=== PATIENT | female | born 1990 | race Caucasian/White ===

== ENCOUNTER 2020-08-01 09:31 | Emergency (ER) | payer MEDICAID ==
[2020-08-01 10:12] LABS: BASOPHILS % (AUTO) 0.5 %; EOSINOPHILS % (AUTO) 0.5 %; LYMPHOCYTES # (AUTO) 1.4 10^3/uL (1.5-3.5); MEAN CORPUSCULAR HEMOGLOBIN 30.9 pg (27.0-31.0); MEAN CORPUSCULAR HGB CONC 34.8 g/dL (32.0-36.0); MEAN CORPUSCULAR VOLUME 88.8 fL (81.0-99.0); MEAN PLATELET VOLUME 11.9 fL (7.9-10.8); MONOCYTES # (AUTO) 0.4 10^3/uL (0.0-1.0); MONOCYTES % (AUTO) 5.3 %; NEUTROPHILS # (AUTO) 6.2 10^3/uL (1.5-6.6); NEUTROPHILS % (AUTO) 76.3 %; PLT - PLATELET COUNT 167 10^3/uL (130-450); RED BLOOD COUNT 4.21 10^6/uL (4.20-5.40); RED CELL DISTRIBUTION WIDTH 14.2 % (12.0-15.0); WHITE BLOOD COUNT 8.1 x10^3/uL (4.8-10.8)
[2020-08-01 10:27] LABS: ALBUMIN 3.6 g/dL (3.2-5.5); ALBUMIN/GLOBULIN RATIO 1.2 (1.0-2.2); ALKALINE PHOSPHATASE 49 IU/L (42-121); ALT ALANINE AMINOTRANSFERASE 19 IU/L (10-60); AST ASPARTATE AMINOTRANSFERASE 25 IU/L (10-42); BILIRUBIN,TOTAL 0.5 mg/dL (0.2-1.0); BUN - BLOOD UREA NITROGEN < 5 mg/dL (6-20); CARBON DIOXIDE - CO2 21 mmol/L (21-32); CHLORIDE 104 mmol/L (101-111); CREATININE 0.7 mg/dL (0.4-1.0); GLUCOSE 100 mg/dL (70-100); LIPASE 27 U/L (22-51); TOTAL PROTEIN 6.7 g/dL (6.7-8.2)
[2020-08-01 10:43] LABS: BILIRUBIN,URINE NEGATIVE (NEGATIVE); GLUCOSE, URINE (UA) NEGATIVE (NEGATIVE); KETONES,URINE (UA) NEGATIVE (NEGATIVE); LEUKOCYTE ESTERASE, URINE NEGATIVE (NEGATIVE); NITRITE,URINE NEGATIVE (NEGATIVE); OCCULT BLOOD,URINE NEGATIVE (NEGATIVE); PH,URINE 6.5 PH (5.0-7.5); PROTEIN,URINE NEGATIVE (NEGATIVE); UROBILINOGEN,URINE 0.2 (NORMAL) E.U./dL (NORMAL)
[2020-08-01 10:46] LABS: HCG UR QUAL POSITIVE
[2020-08-01 10:50] LABS: CLARITY,URINE CLEAR (CLEAR)
[2020-08-01] MEDS ORDERED: ONDANSETRON 4 MG/2 ML VIAL IVP STA (11:12)
[2020-08-01] MEDS ORDERED: SODIUM CHLORIDE 0.9% 1,000 ML IV STA (11:12)
--- NOTE | 2020-08-01 11:14 | ED Physician Documentation ---
PD HPI FEMALE - Stated complaint Stated Complaint: N/V - Chief complaint Chief Complaint: Abd Pain - History obtained from History obtained from: Patient - History of Present Illness Timing - onset: How many days ago (3) Timing - duration: Days (3) Timing - details: Gradual onset, Still present Associated symptoms: Pelvic pain, Other (vomiting) Contributing factors: (18 wks by dates) OB-SOAKER MEAT History: G (4), P (2), Termination(s) (1) Similar symptoms before: Diagnosis (hyperemesis) Recently seen: Not recently seen - Additional information Additional information: 29-year-old female who is at approximately 18 weeks by dates is a 4 para 2 AB 1 and she has developed some pelvic cramping as well as nausea and vomiting and she has history of hyperemesis. She has vomited throughout her she feels dehydrated today and she is come in for evaluation. She has not had care with this as she is recently moved here from [place]. She has not had ultrasound with this . Review of Systems Constitutional: denies: Fever Eyes: denies: Decreased vision Ears: denies: Ear pain Nose: denies: Congestion Throat: denies: Sore throat Cardiac: denies: Chest pain / pressure, Palpitations Respiratory: denies: Dyspnea, Cough GI: reports: Abdominal Pain, Nausea, Vomiting, Diarrhea : denies: Dysuria, Frequency Skin: denies: Rash Musculoskeletal: denies: Neck pain, Back pain, Extremity pain Neurologic: denies: Generalized weakness, Focal weakness, Numbness PD PAST MEDICAL HISTORY - Past Medical History Cardiovascular: None Respiratory: None Neuro: Migraines Endocrine/Autoimmune: None GI: GERD : Kidney stones HEENT: None Psych: Anxiety Musculoskeletal: None Derm: None - Past Surgical History Past Surgical History: Yes /SOAKER MEAT: section - Present Medications Home Medications: Ambulatory Orders Medication Instructions Recorded Confirmed Ondansetron Odt [Zofran] 4 mg TL Q6H PRN #10 tab 08/01/20 - Allergies Allergies/Adverse Reactions: Allergies Allergy/AdvReac Type Severity Reaction Status Date / Time No Known Drug Allergies Allergy Verified 08/01/20 09:37 - Social History Does the pt smoke?: No Smoking Status: Never smoker Does the pt drink ETOH?: No Does the pt have substance abuse?: No - Immunizations Immunizations are current?: Yes PD ED PE NORMAL - Vitals Vital signs reviewed: Yes (tachy and hypertensive ) - General General: Alert and oriented X 3, No acute distress, Well developed/nourished - HEENT HEENT: Atraumatic, PERRL, EOMI - Neck Neck: Supple, no meningeal sign, No bony TTP - Cardiac Cardiac: No murmur, Other (tachy to 100) - Respiratory Respiratory: No respiratory distress, Clear bilaterally - Abdomen Abdomen: Normal bowel sounds, Soft, Non distended, No organomegaly, Other (mild suprapubic tenderness without garding) - Back Back: No CVA TTP, No spinal TTP - Derm Derm: Normal color, Warm and dry, No rash - Extremities Extremities: No deformity, No edema - Neuro Neuro: Alert and oriented X 3, 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, No motor deficit, No sensory deficit, Normal speech Eye Opening: Spontaneous Motor: Obeys Commands Verbal: Oriented GCS Score: 15 - Psych Psych: Normal mood, Normal affect Results - Vitals Vitals: Vital Signs - 24 hr 08/01/20 08/01/20 09:37 11:38 Temperature 36.3 C L Heart Rate 103 H 64 Respiratory 18 18 Rate Blood Pressure 141/92 H 110/62 O2 Saturation 100 99 Oxygen O2 Source Room air - Labs Labs: Laboratory Tests 08/01/20 08/01/20 08/01/20 10:00 10:00 10:13 WBC 8.1 RBC 4.21 Hgb 13.0 Hct 37.4 MCV 88.8 MCH 30.9 MCHC 34.8 RDW 14.2 Plt Count 167 MPV 11.9 H Neut # (Auto) 6.2 Lymph # (Auto) 1.4 L Bucks # (Auto) 0.4 Eos # (Auto) 0.0 Baso # (Auto) 0.0 Absolute Nucleated RBC 0.00 Nucleated RBC % 0.0 Sodium 137 Potassium 3.7 Chloride 104 Carbon Dioxide 21 Anion Gap 12.0 BUN < 5 L Creatinine 0.7 Estimated GFR (MDRD) 100 Glucose 100 Calcium 9.0 Total Bilirubin 0.5 AST 25 ALT 19 Alkaline Phosphatase 49 Total Protein 6.7 Albumin 3.6 Globulin 3.1 Albumin/Globulin Ratio 1.2 Lipase 27 Urine Color YELLOW Urine Clarity CLEAR Urine pH 6.5 Ur Specific Henderson 1.010 Urine Protein NEGATIVE Urine Glucose (UA) NEGATIVE Urine Ketones NEGATIVE Urine Occult Blood NEGATIVE Urine Nitrite NEGATIVE Urine Bilirubin NEGATIVE Urine Urobilinogen 0.2 (NORMAL) Ur Leukocyte Esterase NEGATIVE Ur Microscopic Review NOT INDICATED Urine Culture Comments NOT INDICATED Urine HCG, Qual POSITIVE Procedures - Bedside sono Bedside sono by EMP: With use of bedside ultrasound the pelvis is imaged there is a single viable viable fetus measuring 16 weeks 6 days by biparietal diameter with a heart rate of 144 bpm. - IVC sono (time) 1100 Bedside IVC sono: IVC measures (cm) (1.07), IVC collapsed c insp (cm) (complete), Dehydration (est 1+ liter deficit) Departure - Departure Disposition: 01 Home, Self Care Clinical Impression: Dehydration, Hyperemesis gravidarum Condition: Stable Instructions: ED Dehydration, ED Preg Morning Sickness Follow-Up: [facility] [Provider Group] Prescriptions: Ondansetron Odt [Zofran] 4 mg TL Q6H PRN #10 tab PRN Reason: Nausea / Vomiting
[2020-08-01 11:39] VITALS: BP 110/62
== END 2020-08-01 12:28 | disposition home or self-care (01) ==
LOC: ED 09:31
DX: O99.282 Endocrine, nutritional and metabolic diseases complicating pregnancy, second trimester (principal); O21.1 Hyperemesis gravidarum with metabolic disturbance; Z3A.16 16 weeks gestation of pregnancy
CPT/HCPCS: 36415; 80053; 81001; 81003; 81025; 83690; 85025; 87086; 96374; 99284

== ENCOUNTER 2020-08-04 08:00 | Outpatient (CLI) | payer MEDICAID ==
[2020-08-04 14:23] LABS: BILIRUBIN,URINE NEGATIVE (NEGATIVE); GLUCOSE, URINE (UA) NEGATIVE (NEGATIVE); KETONES,URINE (UA) NEGATIVE (NEGATIVE); LEUKOCYTE ESTERASE, URINE NEGATIVE (NEGATIVE); NITRITE,URINE NEGATIVE (NEGATIVE); OCCULT BLOOD,URINE NEGATIVE (NEGATIVE); PH,URINE 7.5 PH (5.0-7.5); PROTEIN,URINE NEGATIVE (NEGATIVE); UROBILINOGEN,URINE 0.2 (NORMAL) E.U./dL (NORMAL)
[2020-08-04 14:27] LABS: CLARITY,URINE CLEAR (CLEAR)
[2020-08-04 14:40] LABS: BACTERIA,URINE None Seen /HPF (None Seen); RBC,URINE 0-5 /HPF (0-5); SQUAMOUS EPITHELIAL CELL,UR RARE Squamous (<= Few)
== END 2020-08-04 23:59 | disposition home or self-care (01) ==
LOC: LAB.R 08:00
PROVIDERS: ATTEND Obstetrics & Gynecology
DX: Z36.89 Encounter for other specified antenatal screening (principal)
CPT/HCPCS: 81001; 87086

== ENCOUNTER 2020-08-12 10:29 | Outpatient (CLI) | payer MEDICAID ==
[2020-08-12 11:12] LABS: BASOPHILS % (AUTO) 0.3 %; EOSINOPHILS % (AUTO) 0.4 %; HGB - HEMOGLOBIN 13.4 g/dL (12.0-16.0); LYMPHOCYTES # (AUTO) 2.1 10^3/uL (1.5-3.5); LYMPHOCYTES % (AUTO) 19.7 %; MEAN CORPUSCULAR HEMOGLOBIN 31.1 pg (27.0-31.0); MEAN CORPUSCULAR HGB CONC 34.9 g/dL (32.0-36.0); MEAN CORPUSCULAR VOLUME 89.1 fL (81.0-99.0); MEAN PLATELET VOLUME 11.6 fL (7.9-10.8); MONOCYTES # (AUTO) 0.6 10^3/uL (0.0-1.0); MONOCYTES % (AUTO) 5.5 %; NEUTROPHILS # (AUTO) 7.7 10^3/uL (1.5-6.6); NEUTROPHILS % (AUTO) 73.7 %; PLT - PLATELET COUNT 194 10^3/uL (130-450); RED BLOOD COUNT 4.31 10^6/uL (4.20-5.40); RED CELL DISTRIBUTION WIDTH 14.3 % (12.0-15.0); WHITE BLOOD COUNT 10.4 x10^3/uL (4.8-10.8)
[2020-08-12 12:14] LABS: BILIRUBIN,URINE NEGATIVE (NEGATIVE); GLUCOSE, URINE (UA) NEGATIVE (NEGATIVE); KETONES,URINE (UA) NEGATIVE (NEGATIVE); LEUKOCYTE ESTERASE, URINE NEGATIVE (NEGATIVE); NITRITE,URINE NEGATIVE (NEGATIVE); OCCULT BLOOD,URINE NEGATIVE (NEGATIVE); PH,URINE 5.5 PH (5.0-7.5); PROTEIN,URINE NEGATIVE (NEGATIVE); UROBILINOGEN,URINE 0.2 (NORMAL) E.U./dL (NORMAL)
[2020-08-12 12:20] LABS: CLARITY,URINE CLEAR (CLEAR)
[2020-08-12 12:26] LABS: BACTERIA,URINE None Seen /HPF (None Seen); RBC,URINE 0-5 /HPF (0-5); SQUAMOUS EPITHELIAL CELL,UR RARE Squamous (<= Few)
[2020-08-12 12:28] LABS: CASTS, URINE 0-2 Hyaline Casts /LPF
[2020-08-14 13:53] LABS: HIV AG/AB 4TH GEN NON-REACTIVE (NON-REACTIVE)
[2020-08-14 15:21] LABS: HEPATITIS B SURFACE ANTIGEN NON-REACTIVE (NON-REACTIVE)
[2020-08-15 11:36] LABS: AGE RISK DOWN SYNDROME 1 IN 814; CIGARETTE SMOKER? NOT GIVEN; DONOR AGE: EGG RETRIEVAL NOT GIVEN; DONOR EGG NOT GIVEN; HCG MOM 0.56; HX OF NEURAL TUBE DEFECTS NOT GIVEN; INHIBIN A MOM 1.38; INSULIN DEPEND DIABETIC NO; MATERNAL WEIGHT 210 lbs; MSS DOWN SYNDROME RISK <1 IN 5000; MSS3 TRISOMY 18 RISK <1 IN 5000; NUMBER OF FETUSES 1; PREV PREGNANCY DOWN SYND NOT GIVEN; RISK FOR ONTD 1 IN 2715
== END 2020-08-12 10:30 | disposition home or self-care (01) ==
LOC: LAB 10:29
PROVIDERS: ATTEND Obstetrics & Gynecology
DX: O09.92 Supervision of high risk pregnancy, unspecified, second trimester (principal); Z36.89 Encounter for other specified antenatal screening; Z11.3 Encounter for screening for infections with a predominantly sexual mode of transmission; Z12.4 Encounter for screening for malignant neoplasm of cervix
CPT/HCPCS: 81001; 81599; 85025; 86592; 86593; 86762; 86780; 86850; 86900; 86901; 87086; 87340; 87389

== ENCOUNTER 2020-08-12 14:21 | Outpatient (CLI) | payer MEDICAID ==
--- NOTE | 2020-08-12 18:46 | Ultrasound Report ---
PROCEDURE: OB 14+ Weeks INDICATIONS: SUPERVISION OF HIGH RISK OUTSIDE/PRIOR DATING DATA: Last menstrual period (LMP): 04/01/2020. LMP-based estimated date of delivery (JO-ANN): 01/06/2021. First dating scan (date and location): 08/12/2020, [facility] Estimated date of delivery (JO-ANN) from first dating scan: 01/08/2021. TECHNIQUE: Real-time scanning was performed of the fetus, with image documentation and biometric measurements. COMPARISON: None FINDINGS: General: A single living intrauterine gestation is present. Presentation: Transverse with head to maternal left Placenta: Placental position is posterior, without previa. Amniotic fluid index: 12.1 cm, within normal limits for gestational age, largest pocket 3.6 cm. heart rate: 147 beats per minute. Maternal cervical canal: 3.5 cm long; normal length is 2.5 cm or more. biometrics: Biparietal diameter: 4.2 cm, 18 weeks 5 days Head circumference: 16.1 cm, 19 weeks 0 days Abdominal circumference: 13.8 cm, 19 weeks 1 day Femur length: 2.9 cm, 18 weeks 5 days Estimated gestational age from initial scan: not applicable. Composite gestational age from present scan: 18 weeks 5 days Estimated weight and percentile: 268 g, 45th percentile Measurement variability for biometric dating: +/- 10 days from 12-20 weeks gestation, +/- 2 weeks fro m 20-30 weeks gestation, +/- 3 weeks for 30 weeks gestation or later. Anatomic survey: Neuro: Ventricles are non-dilated at less than 10 mm. Cisterna magna is normal at 3-11 mm. Cerebel lum is normal in size and morphology. Nuchal skin fold: Normal at less than 6 mm between 14-20 weeks gestational age. Face: Nose and lips, facial profile are normal. Spine: No evidence for spina bifida. Heart: 4-chambered heart is present, with normal ventricular outflow tracts. Diaphragm: Diaphragm is intact. Stomach: Left-sided stomach is present. Kidneys: No hydronephrosis. Normal is less than 5 mm in 2nd trimester, less than 7 mm in 3rd trimester. Cord: 3-vessel cord has orthotopic insertion. Bladder: Normal in size. Extremities: All 4 extremities identified. IMPRESSION: 1. Living second trimester intrauterine . Ultrasound age is 2 days less than clinical age ba sed on LMP. 2. Normal second trimester anatomic survey. Reviewed by: Fabio Kent MD on 08/12/2020 6:45 PM PST Approved by: Fabio Kent MD on 08/12/2020 6:45 PM PST Station ID: [id number]
== END 2020-08-12 14:22 | disposition home or self-care (01) ==
LOC: DI 14:21
PROVIDERS: ATTEND Obstetrics & Gynecology
DX: O09.92 Supervision of high risk pregnancy, unspecified, second trimester (principal); Z36.89 Encounter for other specified antenatal screening; Z11.3 Encounter for screening for infections with a predominantly sexual mode of transmission; Z12.4 Encounter for screening for malignant neoplasm of cervix; Z3A.00 Weeks of gestation of pregnancy not specified
CPT/HCPCS: 81001; 81599; 85025; 86592; 86593; 86762; 86780; 86803; 86850; 86900; 86901; 87086; 87340; 87389

== ENCOUNTER 2020-08-17 10:15 | Outpatient (CLI) | payer MEDICAID ==
[2020-08-17] MEDS ORDERED: LACTATED RINGERS 1,000 ML IV ONE (10:21)
[2020-08-17 10:27] VITALS: BP 118/59
[2020-08-17 10:42] LABS: BILIRUBIN,URINE NEGATIVE (NEGATIVE); GLUCOSE, URINE (UA) NEGATIVE (NEGATIVE); KETONES,URINE (UA) NEGATIVE (NEGATIVE); LEUKOCYTE ESTERASE, URINE NEGATIVE (NEGATIVE); NITRITE,URINE NEGATIVE (NEGATIVE); OCCULT BLOOD,URINE NEGATIVE (NEGATIVE); PROTEIN,URINE NEGATIVE (NEGATIVE); UROBILINOGEN,URINE 0.2 (NORMAL) E.U./dL (NORMAL)
[2020-08-17 10:43] LABS: CLARITY,URINE CLEAR (CLEAR)
[2020-08-17] MEDS ORDERED: ONDANSETRON 4 MG/2 ML VIAL IVP SCH (11:00)
[2020-08-17] MEDS ORDERED: DEXTROSE 5%-LACTATED RINGERS 1,000 ML IV SCH (11:00)
[2020-08-17 11:41] LABS: BASOPHILS % (AUTO) 0.3 %; EOSINOPHILS % (AUTO) 0.3 %; HCT - HEMATOCRIT 34.2 % (37.0-47.0); HGB - HEMOGLOBIN 11.6 g/dL (12.0-16.0); LYMPHOCYTES # (AUTO) 1.4 10^3/uL (1.5-3.5); LYMPHOCYTES % (AUTO) 14.8 %; MEAN CORPUSCULAR HEMOGLOBIN 31.5 pg (27.0-31.0); MEAN CORPUSCULAR HGB CONC 33.9 g/dL (32.0-36.0); MEAN CORPUSCULAR VOLUME 92.9 fL (81.0-99.0); MEAN PLATELET VOLUME 11.7 fL (7.9-10.8); MONOCYTES # (AUTO) 0.4 10^3/uL (0.0-1.0); MONOCYTES % (AUTO) 4.6 %; NEUTROPHILS # (AUTO) 7.6 10^3/uL (1.5-6.6); NEUTROPHILS % (AUTO) 79.5 %; PLT - PLATELET COUNT 148 10^3/uL (130-450); RED BLOOD COUNT 3.68 10^6/uL (4.20-5.40); RED CELL DISTRIBUTION WIDTH 14.4 % (12.0-15.0); WHITE BLOOD COUNT 9.6 x10^3/uL (4.8-10.8)
[2020-08-17 12:03] LABS: ALBUMIN 3.2 g/dL (3.2-5.5); ALBUMIN/GLOBULIN RATIO 1.1 (1.0-2.2); ALKALINE PHOSPHATASE 50 IU/L (42-121); ALT ALANINE AMINOTRANSFERASE 14 IU/L (10-60); AST ASPARTATE AMINOTRANSFERASE 16 IU/L (10-42); BILIRUBIN,TOTAL 0.6 mg/dL (0.2-1.0); BUN - BLOOD UREA NITROGEN < 5 mg/dL (6-20); CALCIUM 8.5 mg/dL (8.5-10.3); CARBON DIOXIDE - CO2 23 mmol/L (21-32); CHLORIDE 99 mmol/L (101-111); CREATININE 0.7 mg/dL (0.4-1.0); GFR - MDRD 100 (>89); GLUCOSE 90 mg/dL (70-100); POTASSIUM 3.6 mmol/L (3.5-5.0); SODIUM 135 mmol/L (135-145); TOTAL PROTEIN 6.1 g/dL (6.7-8.2)
== END 2020-08-17 14:10 | disposition home or self-care (01) ==
LOC: WFO 10:15 → FBP 10:16 → WFO 14:10
PROVIDERS: ATTEND Obstetrics & Gynecology
DX: O21.0 Mild hyperemesis gravidarum (principal); Z3A.20 20 weeks gestation of pregnancy
CPT/HCPCS: 36415; 80053; 81003; 85025; 96361; 96374; J7120; 81001; 87086

== ENCOUNTER 2020-09-16 14:24 | Outpatient (CLI) | payer MEDICAID ==
[2020-09-16] MEDS ORDERED: LACTATED RINGERS 1,000 ML IV SCH (15:03)
[2020-09-16 15:08] LABS: BASOPHILS % (AUTO) 0.4 %; EOSINOPHILS # (AUTO) 0.1 10^3/uL (0.0-0.7); EOSINOPHILS % (AUTO) 0.7 %; HCT - HEMATOCRIT 37.8 % (37.0-47.0); HGB - HEMOGLOBIN 12.9 g/dL (12.0-16.0); LYMPHOCYTES # (AUTO) 1.5 10^3/uL (1.5-3.5); LYMPHOCYTES % (AUTO) 13.8 %; MEAN CORPUSCULAR HEMOGLOBIN 31.1 pg (27.0-31.0); MEAN CORPUSCULAR HGB CONC 34.1 g/dL (32.0-36.0); MEAN CORPUSCULAR VOLUME 91.1 fL (81.0-99.0); MEAN PLATELET VOLUME 11.3 fL (7.9-10.8); MONOCYTES # (AUTO) 0.5 10^3/uL (0.0-1.0); MONOCYTES % (AUTO) 4.6 %; NEUTROPHILS # (AUTO) 8.6 10^3/uL (1.5-6.6); NEUTROPHILS % (AUTO) 80.1 %; PLT - PLATELET COUNT 180 10^3/uL (130-450); RED BLOOD COUNT 4.15 10^6/uL (4.20-5.40); RED CELL DISTRIBUTION WIDTH 14.2 % (12.0-15.0); WHITE BLOOD COUNT 10.8 x10^3/uL (4.8-10.8)
[2020-09-16 15:19] LABS: ALBUMIN 3.6 g/dL (3.2-5.5); ALBUMIN/GLOBULIN RATIO 1.1 (1.0-2.2); BILIRUBIN,TOTAL 0.8 mg/dL (0.2-1.0); CALCIUM 8.8 mg/dL (8.5-10.3); CREATININE 0.7 mg/dL (0.4-1.0); POTASSIUM 3.7 mmol/L (3.5-5.0)
[2020-09-16 15:20] VITALS: BP 110/67
[2020-09-16] MEDS ORDERED: PROMETHAZINE 25 MG/1 ML VIAL IM SCH (15:33)
[2020-09-16] MEDS ORDERED: PROMETHAZINE 25 MG/1 ML VIAL ONE (15:36)
[2020-09-16] MEDS ORDERED: polyethylene glycoL 3350 17 GM PACKET PO PRN (15:44)
[2020-09-16] MEDS ORDERED: DROPERIDOL 5 MG/2 ML VIAL IM STA (16:26)
--- NOTE | 2020-09-16 16:38 | PREOP HISTORY & PHYSICAL ---
DATE OF SERVICE: 09/16/2020 Physician: Holger Sow MD IDENTIFICATION: The patient is a 29-year-old G4, P2, AB1 female whose EDC is 01/06/2021. This has been determined with early visits. This makes her 24 weeks EGA CHIEF COMPLAINT: Nausea and vomiting. HISTORY OF PRESENT ILLNESS: The patient's has been complicated with longstanding nausea and vomiting. She has been tried on doxylamine, Zofran, and Phenergan. She states that she has been feeling quite poorly for the last 8 hours with roughly 20 episodes of nausea and vomiting. She was noted to have some coffee-ground colored stools. She denies any history of any GI bleeds in the past. She has been taking iron for concerns about anemia. She has had quite some difficulty with morning sickness throughout the entire . Her last stool she said was 3 days ago. She states that the stool consistency was like rabbit feces. She feels as though if she could poop her nausea would improve. She notes good motion at this time. She denies any contractions. PAST MEDICAL HISTORY: Positive for some morning sickness. She also has a history of having had anemia in the past. PAST SURGICAL HISTORY: Positive for section x1 as well as stents for renal pain in the past. ALLERGIES: NONE KNOWN. CURRENT MEDICATIONS: Promethazine 25 mg rectal suppositories, advanced to try 8 mg disintegrating as well as progesterone micronized vaginal. PHYSICAL EXAMINATION GENERAL: The patient is currently holding an emesis bag. She is responsive, but does feel uncomfortable at this time. She states that she would feel better if she was able to defecate. HEENT: Pupils equal, round. Extraocular muscles are intact. Mouth is clear. CARDIOVASCULAR: Regular rate and rhythm. LUNGS: Lung block are clear. ABDOMEN: Soft, nontender. There is no evidence of any uterine contractions. heart tone is easily auscultated. LABORATORY STUDIES: White count is 10.8, hemoglobin is 12.9, hematocrit 37.8, her MCH is mildly elevated at 31.1, and platelets 180. Electrolytes are all within normal limits with the exception of a CO2, which is 20, normal is 21-32. Her glucose is normal as well as her AST and ALT. IMPRESSION 1. Twenty-week gestational age. 2. Previous section. 3. Hyperemesis gravidarum, longstanding in this . PLAN: Will obtain a urine checking for specific gravity. The patient has been given Phenergan 25 mg IM. We are awaiting a stool guaiac at this point. Will give her IV fluids, a liter of LR. Will give her an Fleet's enema to see if this does not help her to defecate and release of her pressure. Will also give her MiraLax 17 grams. TD: 09/16/2020 15:52 MTDD
[2020-09-16 17:35] LABS: BILIRUBIN,URINE NEGATIVE (NEGATIVE); GLUCOSE, URINE (UA) NEGATIVE (NEGATIVE); KETONES,URINE (UA) 40 mg/dL (NEGATIVE); LEUKOCYTE ESTERASE, URINE NEGATIVE (NEGATIVE); NITRITE,URINE NEGATIVE (NEGATIVE); OCCULT BLOOD,URINE NEGATIVE (NEGATIVE); PROTEIN,URINE NEGATIVE (NEGATIVE); UROBILINOGEN,URINE 0.2 (NORMAL) E.U./dL (NORMAL)
[2020-09-16 17:36] LABS: CLARITY,URINE CLEAR (CLEAR)
[2020-09-16] MEDS ORDERED: DEXTROSE 5%-LACTATED RINGERS 1,000 ML IV SCH (17:46)
== END 2020-09-16 20:27 | disposition home or self-care (01) ==
LOC: WFO 14:24 → FBP 14:56 → WFO 20:27
PROVIDERS: ATTEND Obstetrics & Gynecology
DX: O21.2 Late vomiting of pregnancy (principal); Z3A.24 24 weeks gestation of pregnancy; O34.219 Maternal care for unspecified type scar from previous cesarean delivery
CPT/HCPCS: 51701; 80053; 81003; 82272; 85025; 96372; 99213; A9270; J7120; 59025; 81001; 82270

== ENCOUNTER 2020-10-18 10:52 | Outpatient (CLI) | payer MEDICAID ==
[2020-10-18 11:07] LABS: HCT - HEMATOCRIT 35.9 % (37.0-47.0); HGB - HEMOGLOBIN 12.3 g/dL (12.0-16.0); MEAN CORPUSCULAR HEMOGLOBIN 31.9 pg (27.0-31.0); MEAN CORPUSCULAR HGB CONC 34.3 g/dL (32.0-36.0); MEAN PLATELET VOLUME 11.4 fL (7.9-10.8); RED BLOOD COUNT 3.86 10^6/uL (4.20-5.40); RED CELL DISTRIBUTION WIDTH 14.3 % (12.0-15.0); WHITE BLOOD COUNT 9.2 x10^3/uL (4.8-10.8)
== END 2020-10-18 10:53 | disposition home or self-care (01) ==
LOC: LAB 10:52
PROVIDERS: ATTEND Obstetrics & Gynecology
DX: Z36.89 Encounter for other specified antenatal screening (principal)
CPT/HCPCS: 36415; 85027; 86850

== ENCOUNTER 2020-12-05 15:50 | Outpatient (CLI) | payer MEDICAID ==
--- NOTE | 2020-12-06 10:31 | Ultrasound Report ---
PROCEDURE: OB F/U or Repeat INDICATIONS: SUPERVISION OF HIGH RISK OUTSIDE/PRIOR DATING DATA: Last menstrual period (LMP): 04/01/2020. LMP-based estimated date of delivery (JO-ANN): 01/06/2021. First available dating scan (date and location): 08/12/2020, [facility]. Estimated date of delivery (JO-ANN) from this dating scan: 01/08/2021. The below data below was generated using the above JO-ANN of 01/06/2021 TECHNIQUE: Real-time scanning was performed of the fetus, with image documentation and biometric measurements. Endovaginal scanning: Not needed COMPARISON: 08/12/2020. FINDINGS: General: A single living intrauterine gestation is present. Presentation: Vertex Placenta: Placental position is posterior, without previa. Amniotic fluid index: 20.9 cm, normal for gestational age, with the largest pocket 7.0 cm.. heart rate: 171 beats per minute. Maternal cervical canal: Closed, somewhat poorly seen due to vertex presentation of the fetus. biometrics: Biparietal diameter: 8.9 cm, 36 weeks 2 days Head circumference: 32.6 cm, 37 weeks 0 days 31 Abdominal circumference: 31.0 cm, 34 weeks 6 days Femur length: 6.9 cm, 35 weeks 2 days Estimated gestational age from initial scan: 35 weeks 1 day. Composite gestational age from present scan: 35 weeks 6 days Estimated weight and percentile: 2658 g, 53rd percentile Measurement variability in biometric dating: +/- 10 days from 12-20 weeks gestation, +/- 2 weeks from 20-30 weeks gestation, +/- 3 weeks at 30 weeks gestation or more. Other: No anomaly seen. IMPRESSION: Appropriate growth, no anomaly seen. Current estimated weight is at th e 53rd percentile, 2658 g. Amniotic fluid index is 20.9 cm with deepest pocket 7.0 cm. Reviewed by: Jairo Motley MD on 12/06/2020 10:30 AM PDT Approved by: Jairo Motley MD on 12/06/2020 10:30 AM PDT Station ID: [id number]
== END 2020-12-05 15:51 | disposition home or self-care (01) ==
LOC: DI 15:50
PROVIDERS: ATTEND Obstetrics & Gynecology
DX: O09.93 Supervision of high risk pregnancy, unspecified, third trimester (principal); O21.0 Mild hyperemesis gravidarum; Z3A.35 35 weeks gestation of pregnancy

== ENCOUNTER 2020-12-12 08:00 | Outpatient (CLI) | payer MEDICAID ==
[2020-12-13 19:36] LABS: CHLAMYDIA TRACHOMATIS DNA NEGATIVE (NEGATIVE); NEISSERIA GONORRHOEAE DNA NEGATIVE (NEGATIVE); TRICHOMONAS VAGINALIS DNA NEGATIVE (NEGATIVE)
== END 2020-12-12 23:59 | disposition home or self-care (01) ==
LOC: LAB.R 08:00
PROVIDERS: ATTEND Obstetrics & Gynecology
DX: Z36.85 Encounter for antenatal screening for Streptococcus B (principal)
CPT/HCPCS: 87491; 87591; 87661; 87797

== ENCOUNTER 2021-01-01 10:22 | Outpatient (CLI) | payer MEDICAID ==
[2021-01-01 10:55] LABS: BASOPHILS % (AUTO) 0.3 %; EOSINOPHILS % (AUTO) 0.3 %; HCT - HEMATOCRIT 37.6 % (37.0-47.0); HGB - HEMOGLOBIN 12.4 g/dL (12.0-16.0); LYMPHOCYTES # (AUTO) 1.5 10^3/uL (1.5-3.5); LYMPHOCYTES % (AUTO) 15.8 %; MEAN CORPUSCULAR HEMOGLOBIN 28.8 pg (27.0-31.0); MEAN CORPUSCULAR VOLUME 87.2 fL (81.0-99.0); MEAN PLATELET VOLUME 11.5 fL (7.9-10.8); MONOCYTES # (AUTO) 0.6 10^3/uL (0.0-1.0); MONOCYTES % (AUTO) 6.5 %; NEUTROPHILS # (AUTO) 7.1 10^3/uL (1.5-6.6); NEUTROPHILS % (AUTO) 76.7 %; PLT - PLATELET COUNT 156 10^3/uL (130-450); RED BLOOD COUNT 4.31 10^6/uL (4.20-5.40); RED CELL DISTRIBUTION WIDTH 13.7 % (12.0-15.0); WHITE BLOOD COUNT 9.3 x10^3/uL (4.8-10.8)
== END 2021-01-01 10:23 | disposition home or self-care (01) ==
LOC: LAB 10:22
PROVIDERS: ATTEND Obstetrics & Gynecology
DX: Z01.812 Encounter for preprocedural laboratory examination (principal); O34.211 Maternal care for low transverse scar from previous cesarean delivery
CPT/HCPCS: 36415; 85025; 86850; 86900; 86901; 86920

== ENCOUNTER 2021-01-02 07:52 | Inpatient (IN) | payer MEDICAID ==
--- NOTE | 2021-01-02 07:33 | HISTORY & PHYSICAL EXAMINATION ---
HPI - History of Present Illness HPI Comment/Other: ID: Patient is a 30 yo at 39+3 wga here for repeat CS and bilateral salpingectomy. HPI: hx complicated by two deliveries via and severe hyperemesis. Has had minimal weight gain this but has grown well on serial growth us. EFW on 12/05/20 was 53%ile. Desires sterilization via bilateral salpingectomy. PNC HX: LMP: 04/01/2020 JO-ANN by LMP: 01/06/2021 Initial U/S: 08/12/2020 FINAL JO-ANN: 01/06/2021 B Negative / Rubella Immune; Rhogam given 10/19/2020 VZV: Equivocal Genetic testing: Quad Screen Negative FAS: [place] Glucola: profiling . Normal range BG at present -Growth us ordered Influenza: TDAP 10/19/2020 GBS @ 36 wks. Reviewed HSV: denies Breast pump Rx: given MOD: CS at 39 weeks; MFM obtained op report showing LTCS at 32+3 wga [facility] consent on 10/19/20 and given copy in event of transfer for PTD *SCHEDULE CS at 39 weeks pp contraception: pap: 08/12/20, Norm Past Medical History: Reviewed: No siginificant past medical history noted Past Surgical History: C/S AT 32 WEEKS STINT FOR RENAL PAIN. Family History: Mother with asthma and arthritis ROS: As per HPI, oterwise remaining systems are negative PE: VS: 97.9 75 130/73 19 99 GEN: NAD HEAD: NCAT EYES: No scleral icterus or conjunctival injection CV: RRR RESP: CTAB, normal effort ABD: S&NT/ND PSYCH: appropriate affect NEURO: alert and oriented, normal gait and coordination EXT: WWP EFM 150 mod abner 15x15 accels no decels TOCO: intermittent A/P: Reviewed risks/benefits/alternatives to and BTL Risks include, but are not limited to, bleeding, infection, damage to neatby ti ssue and organs. On average, EBL of up to 1 liter is considered within normal limits for CS. Risks of blood transfusion include infection Risk of HIV 1/2million nationwide Risk of Hepatitis 1/1 million Risks of transfusion reaction Infection risk moderate given clean/contaminated nature of procedure and IV antibiotics will be given. Damage to nearby tissue and organs including bladder, bowel, ureters, blood vessels, nerves, and fetus Damage may be noted intra-op and may be delayed until after the procedure is complete Reviewed management of complications and efforts to avoid such outcomes but reviewed that they may occur despite our best efforts Confirmed that sterlization is desired Patient understands that tubal ligation is an irreversible process that will result in future infertility Written informed consent obtained. FEB: Cat I tracing. Well grown. 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
[2021-01-02] MEDS ORDERED: ceFAZolin 2 GM/50 ML 2 GM/50 ML BAG IV ONE (08:15)
[2021-01-02] MEDS ORDERED: ACETAMINOPHEN 1,000 MG/100 ML 100 ML IV ONE (09:00)
[2021-01-02] MEDS ORDERED: ONDANSETRON 4 MG/2 ML VIAL ONE ×2 (09:25→11:27)
[2021-01-02] MEDS ORDERED: LACTATED RINGERS 1,000 ML IV SCH ×2 (09:26→10:00)
[2021-01-02] MEDS ORDERED: ePHEDrine 50 MG/ML VIAL IVP PRN ×2 (09:34→11:54)
[2021-01-02] MEDS ORDERED: HYDROmorphone 0.5 MG/0.5 ML SYRINGE IVP PRN (09:34)
[2021-01-02] MEDS ORDERED: ONDANSETRON 4 MG/2 ML VIAL IVP PRN ×2 (09:34→11:54)
[2021-01-02] MEDS ORDERED: MORPHINE 2 MG/ML CARPUJECT IVP PRN (09:34)
[2021-01-02] MEDS ORDERED: ATROPINE ABBOJECT 1 MG/10 ML SYRINGE IVP PRN (09:34)
[2021-01-02] MEDS ORDERED: METOCLOPRAMIDE 10 MG/2 ML VIAL IVP PRN ×2 (09:34→11:54)
[2021-01-02] MEDS ORDERED: NALOXONE 0.4 MG/ML VIAL IVP PRN ×2 (09:34→11:54)
[2021-01-02] MEDS ORDERED: fentaNYL 100 MCG/2 ML VIAL IVP PRN (09:34)
--- NOTE | 2021-01-02 09:34 | ANESTHESIA ---
Pre-Anesthesia VS, & Labs - Diagnosis repeat C/S - Procedure Section Vital Signs: Temp Pulse Resp BP Pulse Ox 36.6 C 01/02/21 09:04 Height: 5 ft 6 in Weight (kg): 95.799 kg Body Mass Index: 34.0 BMI Classification: Obese - NPO >8 hours - Is Patient ?: Yes Home Medications and Allergies Active Medications Lactated Ringer's (Lr) 1,000 mls @ 0 mls/hr IV .Q0M DARIA Allergies/Adverse Reactions: Allergies Allergy/AdvReac Type Severity Reaction Status Date / Time No Known Drug Allergies Allergy Verified 08/01/20 09:37 Anes History & Medical History - Anesthetic History Anesthesia Complications: reports: No previous complications, Post-Operative Nausea/Vomiting - Medical History Cardiovascular: reports: None Pulmonary: reports: None Gastrointestinal: reports: GERD Urinary: reports: Kidney stones Neuro: reports: Migraines Musculoskeletal: reports: None Endocrine/Autoimmune: reports: None Blood Disorders: reports: None Skin: reports: None Smoking Status: Never smoker History of Cancer?: No - Surgical History Gynecologic: reports: section Exam General: Alert Dental: WNL Mouth Opening: Greater than 4 Fingerbreadths Neck Mobility: Normal Mallampati classification: I Respiratory: Lungs clear Cardiovascular: Regular rate Plan Anesthesia Type: Spinal Consent for Procedure(s) Verified and Reviewed: Yes Code Status: Attempt Resuscitation ASA classification: 2-Mild systemic disease Is this case an emergency?: No
[2021-01-02] MEDS ORDERED: BUPIVACAINE 0.5%-EPI 1:200000 PF 30 ML VIAL ONE (09:37)
[2021-01-02] MEDS ORDERED: MORPHINE PF 5 MG/10 ML VIAL ONE (10:21)
[2021-01-02] MEDS ORDERED: OXYTOCIN 10 UNIT/ML VIAL ONE ×2 (10:22→13:18)
[2021-01-02] MEDS ORDERED: fentaNYL 100 MCG/2 ML VIAL IT ONE (11:15)
[2021-01-02] MEDS ORDERED: MORPHINE PF 5 MG/10 ML VIAL IT ONE (11:15)
[2021-01-02] MEDS ORDERED: PROPOFOL 200 MG/20 ML VIAL IVP ONE (11:30)
[2021-01-02] MEDS ORDERED: NALBUPHINE 10 MG/ML AMP IVP PRN (11:54)
[2021-01-02] MEDS ORDERED: diphenhydrAMINE INJ 50 MG/ML VIAL IVP PRN (11:54)
[2021-01-02] MEDS ORDERED: ROPIVACAINE 0.5% PF 20 ML AMPULE ONE (13:20)
[2021-01-02] MEDS ORDERED: KETOROLAC 30 MG/ML VIAL ONE (13:35)
[2021-01-02] MEDS ORDERED: LACTATED RINGERS 1,000 ML IV ONE (13:44)
[2021-01-02] MEDS ORDERED: PROMETHAZINE INJ 6.25 MG in SODIUM CHLORIDE 0.9% 50 ML IV PRN (13:53)
[2021-01-02] MEDS ORDERED: PROMETHAZINE 25 MG/1 ML VIAL ONE (13:56)
[2021-01-02] MEDS ORDERED: SIMETHICONE CHEW 80 MG TABLET PO PRN (14:00)
[2021-01-02] MEDS ORDERED: ONDANSETRON ODT 4 MG TABLET TL PRN (14:00)
[2021-01-02] MEDS ORDERED: OXYTOCIN/SODIUM CHLORIDE 500 ML IV PRN (14:00)
--- NOTE | 2021-01-02 14:07 | OPERATIVE REPORT ---
Operative Report - General Admit Date: 01/02/21 Procedure Date: 01/02/21 Planned Procedure: Repeat low transverse and bilateral salpingectomy Pre-Op Diagnosis: IUP at 39+3 wga, hx of prior , desires sterilization. Procedure Performed: Repeat low transverse and bilateral salpingectomy Post Op Diagnosis: Same and delivery of term gestation - Procedure Note Primary Surgeon: Florinda Delgado MD Secondary Surgeon: ROSANNA Padilla Anesthesia Provider: Nate Montalvo CRNA Anesthesia Technique: Spinal Pathology: Placenta for routine discard Bilateral fallopian tubes sent as one specimen to Pathology. IV Fluids (mL): 1,000 Estimated Blood Loss (mL): 550 Urine Output (mL): 250 Indications: Patient is a 30 yo at 39+3 wga here for repeat CS and bilateral salpingectomy. hx complicated by two deliveries via and severe hyperemesis. Has had minimal weight gain this but infant has grown well on serial growth us. EFW on 12/05/20 was 53%ile. Desires sterilization via bilateral salpingectomy. Desires repeat . R/B/A reviewed and written informed consent was obtained. Findings: Normal appearing uterus, fallopian tubes, and ovaries. Female infant in vertex position with Apgars of 9/9, meconium stained fluid. Complications: None - Other Other Information/Narrative: Risks benefits and alternatives of the procedure were discussed. Written i nformed consent was obtained. Patient was taken to the operating room where spinal anesthesia was placed and found to be adequate. She was prepped and draped in the usual sterile fashion in a partial dorsal supine position with a leftward tilt. Patient was experiencing severe nausea 2/2 hypermesis and could not tolerate a supine position. As such, the was position in a partial supine, partial left lateral recumbant position. Mera catheter was in place. SCDs were in place and activated. A Pfannenstiel incision was made in the skin with a scalpel and carried through the underlying layer of fascia in a combination of sharp and blunt dissection. The fascia was incised in the midline, and the incision was extended laterally with the Bernstein scissors. The superior aspect of the fascial incision was grasped with the Edmar clamps, elevated, and the underlying rectus muscles were dissected off bluntly and sharply using the Bernstein scissors. Attention was then turned to the inferior aspect of the incision which in a similar fashion was grasped, tented up with Edmar clamps, and the underlying rectus muscles dissected off bluntly and sharply using Bernstein scissors. The rectus muscles were then in the midline. The peritoneum was identified, tented up, and entered bluntly. The peritoneal incision was extended superiorly and inferiorly with good visualization of the bladder. The bladder that blade was then inserted. A bladder flap was not created. The lower uterine segment of the uterus was identified, and incised in a transverse fashion with a scalpel. The uterus was entered bluntly. The uterine incision was extended in a craniocaudal fashion by manual stretch. The bladder blade was removed. The infant was delivered from from vertex position. Baby was wrapped in a warm sterile towel. Delayed cord clamping was performed. After cessation of pulsations, the cord was clamped x2 and cut. The infant was handed off to the waiting pediatricians. The placenta was removed with manual expression. The uterus was exteriorized and cleared of all clots and debris via manual swipe using Ray-Elton x2. The uterine incision was then repaired in a running locked fashion using 0 Vicryl suture. The incision was reinforced with a running imbricating layer again using 0-Vicryl suture. Excellent hemostasis was obtained. Attention was then turned to the salpingectomy portion of the procedure. The left Fallopian tube was grasped with Houston clamps and elevated. It was resected from the underlying mesosalpinx with the LigaSure bipolar sealing and cutting device until the insertion point at the uterine cornua was met. At that point, the fallopian tube was sealed and transected at ints insertion point into the uterine cornua. The tube was removed from the field. This process was repeated on the right side. Both tubes were sent in a single specimen to Pathology. The uterus was returned to the abdomen. The gutters were cleared of all clots and debris. The pelvis was irrigated with warm normal saline. The uterine defect was well visualized in normal anatomic position it was noted again to be hemostatic. The peritoneum was then reapproximated with 2-0 Vicryl in a running fashion. The rectus muscles were then reapproximated using interrupted [id number] sutures using 2-0 Chromic. Good hemostasis was noted. The fascia was then closed using 0 Vicryl in a running fashion starting from the left lateral edge to the midline. A second suture was used to close the fascia in a running fashion starting from the right lateral edge and meeting in the midline, agian using 0-Vicryl. The subcutaneous tissue was then irrigated and closed using 2-0 chromic in a running subcutaneous suture. Skin was closed in a running subcuticular suture using 4-0 Monocryl. Steri-Strips were applied to reinforce the incision and dressing was applied. Procedure was well-tolerated and without complication. Sponge lap and needle counts were correct x2. Patient was taken to recovery room in stable condition. ROSANNA Almanza, assisted with retraction, delivery of the infant, and suturing. NOTE: This procedure was more difficult than average due to the fact that patient was positioned in a semi-upright, left lateral recumbent/partial supine position. High tone 2/2 hyperemesis resulting in obstacles to closure. Surgeon operated on opposite side of patient to accommodate positioning requirement.
--- NOTE | 2021-01-02 15:33 | ANESTHESIA POST OP EVALUATION ---
Anesthesia Post Eval - Post Anesthesia Eval Vitals: Last Vital Signs Temp 36.4 C L 01/02/21 14:19 Pulse 64 01/02/21 15:17 Resp 18 01/02/21 15:17 BP 104/42 L 01/02/21 15:17 Pulse Ox 100 01/02/21 15:17 CV Function Including HR & BP: Stable Pain Control: Satisfactory Nausea & Vomiting: Negative Mental Status: Baseline Respiratory Status: Airway Patent Hydration Status: Satisfactory Anesthesia Complications: None
[2021-01-02] MEDS ORDERED: PROMETHAZINE 25 MG TABLET PO PRN (16:15)
[2021-01-02] MEDS: KETOROLAC 15 MG/ML VIAL IVP SCH (19:22)
[2021-01-02] MEDS: ACETAMINOPHEN 500 MG TABLET PO SCH (19:22)
[2021-01-02] MEDS: IBUPROFEN 600 MG TABLET PO SCH (19:28)
[2021-01-02] MEDS: LACTATED RINGERS 1,000 ML IV SCH (19:29)
[2021-01-02] MEDS: SODIUM CHLORIDE FLUSH 0.9% 10 ML SYRINGE IVP SCH (19:29)
[2021-01-03] MEDS: KETOROLAC 15 MG/ML VIAL IVP SCH ×3 (01:58→11:20)
[2021-01-03] MEDS: ACETAMINOPHEN 500 MG TABLET PO SCH ×4 (04:40→20:10)
[2021-01-03 05:51] LABS: BASOPHILS % (AUTO) 0.3 %; EOSINOPHILS % (AUTO) 0.1 %; HCT - HEMATOCRIT 32.4 % (37.0-47.0); HGB - HEMOGLOBIN 10.5 g/dL (12.0-16.0); LYMPHOCYTES # (AUTO) 1.4 10^3/uL (1.5-3.5); LYMPHOCYTES % (AUTO) 16.1 %; MEAN CORPUSCULAR HEMOGLOBIN 28.6 pg (27.0-31.0); MEAN CORPUSCULAR HGB CONC 32.4 g/dL (32.0-36.0); MEAN CORPUSCULAR VOLUME 88.3 fL (81.0-99.0); MEAN PLATELET VOLUME 11.7 fL (7.9-10.8); MONOCYTES # (AUTO) 0.6 10^3/uL (0.0-1.0); MONOCYTES % (AUTO) 6.9 %; NEUTROPHILS # (AUTO) 6.8 10^3/uL (1.5-6.6); NEUTROPHILS % (AUTO) 76.1 %; PLT - PLATELET COUNT 145 10^3/uL (130-450); RED BLOOD COUNT 3.67 10^6/uL (4.20-5.40); WHITE BLOOD COUNT 8.9 x10^3/uL (4.8-10.8)
[2021-01-03] MEDS: SODIUM CHLORIDE FLUSH 0.9% 10 ML SYRINGE IVP SCH ×2 (08:31→17:22)
[2021-01-03] MEDS: DOCUSATE SODIUM 100 MG CAPSULE PO SCH ×2 (08:31→11:19)
[2021-01-03] MEDS: IBUPROFEN 600 MG TABLET PO SCH ×4 (11:19→22:53)
[2021-01-03] MEDS: LACTATED RINGERS 1,000 ML IV SCH ×2 (11:19→11:20)
--- NOTE | 2021-01-03 12:51 | PROVIDER PROGRESS NOTE ---
Subjective - Prog Note Date Prog Note Date: 01/03/21 Prog Note Time: 12:49 - Subjective Subjective: Patient states she is doing "great". No emesis since delivery. Able to tolerate po. Pain well managed. Voiding. No concerns. Objective - Vital Signs/Intake & Output Reviewed Vital Signs: Yes Vital Signs: Vital Signs x48h Temp Pulse Resp BP 01/03/21 08:30 98.1 F 61 18 93/55 L Intake & Output: Intake & Output 12/31/20 01/01/21 01/02/21 01/03/21 23:59 23:59 23:59 23:59 Intake Total 1400 700 Output Total 540 1160 Balance 860 -460 - Objective General Appearance: positive: No acute distress Respiratory: positive: No respiratory distress, Breath sounds nml Cardiovascular: positive: Regular rate & rhythm Abdomen: positive: Other (soft and appropriately tender. ND Wound vac in place w ith appropriate compression) Skin: positive: No rash, Warm, Dry Extremities: positive: Non-tender, No pedal edema Neurologic/Psychiatric: positive: Oriented x3 - Lab Results Fish Bones: 01/03/21 05:22 Other Labs: Lab Results x24hrs 01/03/21 Range/Units 05:22 WBC 8.9 (4.8-10.8) x10^3/uL RBC 3.67 L (4.20-5.40) 10^6/uL Hgb 10.5 L (12.0-16.0) g/dL Hct 32.4 L (37.0-47.0) % MCV 88.3 (81.0-99.0) fL MCH 28.6 (27.0-31.0) pg MCHC 32.4 (32.0-36.0) g/dL RDW 14.0 (12.0-15.0) % Plt Count 145 (130-450) 10^3/uL MPV 11.7 H (7.9-10.8) fL Neut # (Auto) 6.8 H (1.5-6.6) 10^3/uL Lymph # (Auto) 1.4 L (1.5-3.5) 10^3/uL Gillespie # (Auto) 0.6 (0.0-1.0) 10^3/uL Eos # (Auto) 0.0 (0.0-0.7) 10^3/uL Baso # (Auto) 0.0 (0.0-0.1) 10^3/uL Absolute Nucleated RBC 0.00 x10^3/uL Nucleated RBC % 0.0 /100WBC Assessment/Plan - Problem List (1) deliv NOS-unsp Impression: Patient is doing well post op Encourage ambulation Routine post op care Anticipate DC home tomorrow
[2021-01-04] MEDS: oxyCODONE 5 MG TABLET PO PRN ×2 (02:30→09:02)
[2021-01-04] MEDS: IBUPROFEN 600 MG TABLET PO SCH ×2 (04:03→11:11)
[2021-01-04] MEDS: ACETAMINOPHEN 500 MG TABLET PO SCH ×2 (04:03→11:11)
[2021-01-04 08:20] VITALS: BP 112/70
--- NOTE | 2021-01-04 08:32 | Discharge Plan ---
Discharge Plan Problem Reviewed?: Yes Disposition: Home, Self Care Condition: Good Prescriptions: Acetaminophen [Acetaminophen Extra Strength] 1,000 mg PO Q8H PRN #60 tablet PRN Reason: Pain Docusate Sodium 100Mg Capsule [Colace 100Mg Capsule] 100 - 200 mg PO BID PRN #60 cap PRN Reason: Constipation Ibuprofen [Motrin] 600 mg PO Q6H PRN #60 tab PRN Reason: Pain oxyCODONE [Roxicodone] 2.5 - 5 mg PO Q4H PRN #24 tablet PRN Reason: Severe Pain Ondansetron Odt [Zofran Odt] 8 mg TL Q8H PRN #30 tablet PRN Reason: Nausea / Vomiting Shower Restrictions: No (No tub baths or hot tubs for 4 weeks) Health Concerns: Nothing in the vagina for 6 weeks: No intercourse, tampons, douching Call for: -Fever greater than 100.5 -Pain that does not improve with pain medication -Heavy bleeding in which you are soaking a pad an hour for 2 hours in a row -Incision becomes hot, hard, red, starts to open, or leaks foul smelling fluid No lifting more than 10# for 4 weeks [address] while on narcotics Ok to shower. Let water run over the incision. Do not soap, scrub, or apply lotion. Pat dry with a clean towel or gunjan a hair spring winder. The surgical stickers will start to peel off and you can remove them when they do. Otherwise, the provider will remove them at your one week follow-up appointment. OK to use an unscented sanitary napkin or clean washcloth to keep the incision dry if the belly folds over the incision. No Smoking: If you smoke, Please STOP! Call for help. Follow-up with: SYDNEE GARNER PA-C [Primary Care Provider] - Gwen Delgado MD [Provider Admit Priv/Credential] -
[2021-01-04] MEDS: DOCUSATE SODIUM 100 MG CAPSULE PO SCH (09:02)
--- NOTE | 2021-01-09 10:58 | DISCHARGE SUMMARY ---
"Discharge Summary Admit Date: 01/02/21 Discharge Date: 01/04/21 Discharging Provider: Dr. Delgado Condition at Discharge: Good Discharge Disposition: 01 Home, Self Care - DIAGNOSES Admission Diagnoses: IUP at 39+3 wga History of prior Hyperemesis Desires sterilization Discharge Diagnoses with Status of Each Condition: Same and delivery of term gestation - HPI History of Present Illness: Patient is a 30 yo at 39+3 wga admitted for repeat CS and bilateral salpingectomy. hx complicated by two deliveries via and severe hyperemesis. Has had minimal weight gain this but has grown well on serial growth us. EFW on 12/05/20 was 53%ile. Desires sterilization via bilateral salpingectomy. PNC HX: LMP: 04/01/2020 JO-ANN by LMP: 01/06/2021 Initial U/S: 08/12/2020 FINAL JO-ANN: 01/06/2021 B Negative / Rubella Immune Rhogam given 10/19/2020 VZV: Equivocal Genetic testing: Quad Screen Negative FAS: [place] Glucola: profiling . Normal range BG at present -Growth us ordered Influenza: TDAP 10/19/2020 GBS @ 36 wks. Reviewed HSV: denies Breast pump Rx: given MOD: CS at 39 weeks; MFM obtained op report showing LTCS at 32+3 wga [facility] consent on 10/19/20 and given copy in event of transfer for PTD *SCHEDULE CS at 39 weeks pp contraception: pap: 08/12/20, Norm - CONSULTS | PROCEDURES Procedures: Repeat low transverse and bilateral salpingectomy - HOSPITAL COURSE Hospital Course: Patient was admitted on 01/02/21 at 39+3 wga for aforementioned repeat and bilateral salpingectomy. Patient had continued hyperemesis and could not tolerate lying in a supine position. Procedure was performed with patient in modified lateral recumbent position and slightly upright, rendering completion of the procedure more difficult. Procedure was well tolerated and uncomplicated. Female in vertex position with Apgars of 9/9, meconium stained fluid. Birthweight 3205 g. Baby blood type was negative and Rhogam was not indicated . course was uncomplicated. By POD#2, patient was meeting goals for discharge and was discharged to home. - ALLERGIES Allergies/Adverse Reactions: Allergies Allergy/AdvReac Type Severity Reaction Status Date / Time No Known Drug Allergies Allergy Verified 08/01/20 09:37 - MEDICATIONS Home Medications: Ambulatory Orders Medication Instructions Recorded Confirmed Ondansetron Odt [Zofran] 8 mg TL Q4H PRN 01/02/21 01/02/21 Promethazine Supp [Phenergan Supp] 25 mg SC Q6HR PRN 01/02/21 01/02/21 Acetaminophen [Acetaminophen Extra 1,000 mg PO Q8H PRN #60 tablet 01/04/21 Strength] Docusate Sodium 100Mg Capsule 100 - 200 mg PO BID PRN #60 cap 01/04/21 [Colace 100Mg Capsule] Ibuprofen [Motrin] 600 mg PO Q6H PRN #60 tab 01/04/21 Ondansetron Odt [Zofran Odt] 8 mg TL Q8H PRN #30 tablet 01/04/21 oxyCODONE [Roxicodone] 2.5 - 5 mg PO Q4H PRN #24 tablet 01/04/21 - LABS Result Diagrams: 01/03/21 05:22 - FOLLOW UP Follow Up: [address] Delgado - TIME SPENT Time Spent in Discharge (Minutes): 30"
== END 2021-01-04 12:15 | disposition home or self-care (01) | DRG 785 ==
LOC: FBP 07:52 → EEVIPCON 07:52
PROVIDERS: ADMIT Obstetrics & Gynecology; ATTEND Obstetrics & Gynecology
PROC: 0UT70ZZ Resection of Bilateral Fallopian Tubes, Open Approach (ICD-10-PCS; 2021-01-02)
PROC: 10D00Z1 Extraction of Products of Conception, Low, Open Approach (ICD-10-PCS; principal; 2021-01-02 10:15)
DX: O34.211 Maternal care for low transverse scar from previous cesarean delivery (principal); O77.0 Labor and delivery complicated by meconium in amniotic fluid; Z3A.39 39 weeks gestation of pregnancy; Z37.0 Single live birth; O21.1 Hyperemesis gravidarum with metabolic disturbance
CPT/HCPCS: 36415; 85025; A9270; J0131; J0690; J2274; J2765; J7120; Q0162; Q0169; 86850; 86900; 86901; 86920

== ENCOUNTER 2021-08-05 16:25 | Emergency (ER) | payer MEDICAID ==
[2021-08-05 16:39] VITALS: BP 140/100
--- NOTE | 2021-08-05 17:03 | ED Physician Documentation ---
PD HPI URI - Stated complaint Stated Complaint: SOA/MUCUS/FATIGUE - Chief complaint Chief Complaint: Resp - History obtained from History obtained from: Patient - Additional information Additional information: Previously healthy 30-year-old woman who has been vaccinated against COVID has been sick for about 5 days with cough, congestion, sore throat. No fevers. Both of her kids are sick with viral URIs. Review of Systems Constitutional: denies: Fever, Chills Nose: reports: Rhinorrhea / runny nose, Congestion Throat: reports: Sore throat Respiratory: reports: Cough. 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 - Present Medications Home Medications: Ambulatory Orders Medication Instructions Recorded Confirmed Ondansetron Odt [Zofran] 8 mg TL Q4H PRN 01/02/21 01/02/21 Promethazine Supp [Phenergan Supp] 25 mg CA Q6HR PRN 01/02/21 01/02/21 Acetaminophen [Acetaminophen Extra 1,000 mg PO Q8H PRN #60 tablet 01/04/21 Strength] Docusate Sodium 100Mg Capsule 100 - 200 mg PO BID PRN #60 cap 01/04/21 [Colace 100Mg Capsule] Ibuprofen [Motrin] 600 mg PO Q6H PRN #60 tab 01/04/21 Ondansetron Odt [Zofran Odt] 8 mg TL Q8H PRN #30 tablet 01/04/21 oxyCODONE [Roxicodone] 2.5 - 5 mg PO Q4H PRN #24 tablet 01/04/21 Guaifenesin/Pseudoephedrne HCl 1 each PO BID PRN #20 ea 08/05/21 [Mucinex D ER 600-60 mg Tablet] guaiFENesin/CODEINE [Robitussin AC] 5 - 10 ml PO Q6H PRN #120 ml 08/05/21 - Allergies Allergies/Adverse Reactions: Allergies Allergy/AdvReac Type Severity Reaction Status Date / Time No Known Drug Allergies Allergy Verified 08/05/21 16:40 - Social History Does the pt smoke?: No Smoking Status: Never smoker Does the pt drink ETOH?: No Does the pt have substance abuse?: No - Immunizations Immunizations are current?: Yes PD ED PE NORMAL - Vitals Vital signs reviewed: Yes - General General: Alert and oriented X 3, No acute distress - HEENT HEENT: PERRL, EOMI, Ears normal, Other (Some redness of the tonsillar pillars but no tonsillar swelling or exudates, no cervical adenopathy.) - Neck Neck: Supple, no meningeal sign, No bony TTP - Cardiac Cardiac: RRR, No murmur - Respiratory Respiratory: No respiratory distress, Clear bilaterally - Abdomen Abdomen: Non tender - Derm Derm: Normal color, Warm and dry - Extremities Extremities: No edema, No calf tenderness / cord - Neuro Neuro: Alert and oriented X 3, Normal speech Results - Vitals Vitals: Vital Signs - 24 hr 08/05/21 16:35 Temperature 36.3 C L Heart Rate 72 Respiratory 18 Rate Blood Pressure 140/100 H O2 Saturation 97 Oxygen O2 Source Room air PD MEDICAL DECISION MAKING - ED course ED course: 30-year-old woman with viral URI in the setting of both of her kids having similar illnesses. She will be tested for COVID and treated with decongestants and codeine for the cough. Departure - Departure Disposition: 01 Home, Self Care Clinical Impression: Upper respiratory tract infection Condition: Good Record reviewed to determine appropriate education?: Yes Instructions: ED Viral Syndrome Prescriptions: Guaifenesin/Pseudoephedrne HCl [Mucinex D ER 600-60 mg Tablet] 1 each PO BID PRN #20 ea PRN Reason: congestion guaiFENesin/CODEINE [Robitussin AC] 5 - 10 ml PO Q6H PRN #120 ml PRN Reason: Cough Comments: I sent your prescriptions electronically to [facility] in [place]. You have a Covid test pending. You need to self quarantine until the result is done and negative. Do not leave your house. Do not get near anybody. The results should be done in 48 to 72 hours. We will call with a positive result, the fastest way to get a negative result for confirmation though is to go to the hospital website at [email or web address], click on the my [employer] tab and sign up for the patient portal. If any friends or family get sick and would like to have a Covid test done, but do not have signs or symptoms that would necessitate being hospitalized, there are multiple local options for Covid testing. [facility] keeps an updated list of testing and vaccination options at: [email or web address]. Return if you worsen, develop high fevers or not better within the next few days to a week.
== END 2021-08-05 17:25 | disposition home or self-care (01) ==
LOC: ED 16:25
DX: J06.9 Acute upper respiratory infection, unspecified (principal); B97.89 Other viral agents as the cause of diseases classified elsewhere; Z20.822 Contact with and (suspected) exposure to COVID-19
CPT/HCPCS: 99282; 99283

== ENCOUNTER 2021-10-06 09:12 | Outpatient (CLI) | payer MEDICAID | END 2021-10-06 09:13 | disposition home or self-care (01) | LOC: LAB 09:12 | PROVIDERS: ATTEND Nurse Practitioner | DX: Z53.9 Procedure and treatment not carried out, unspecified reason (principal) | CPT/HCPCS: 80050; 80061; 81001; 81599; 82607; 83721; 87086 ==

== ENCOUNTER 2022-09-08 08:26 | Emergency (ER) | payer MEDICAID ==
[2022-09-08 09:13] LABS: RAPID STREP SCREEN Negative (Negative)
[2022-09-08 10:15] LABS: INFECTIOUS MONONUCLEOSIS NEGATIVE (Negative)
[2022-09-08 11:35] LABS: B. PARAPERTUSSIS- RESP PCR PAN NOT DETECTED; B. PERTUSSIS- RESP PCR PANEL NOT DETECTED; C. PNEUMONIAE- RESP PCR PANEL NOT DETECTED; CORONAVIRUS 229E-RESP PCR NOT DETECTED; CORONAVIRUS HKU1-RESP PCR NOT DETECTED; CORONAVIRUS NL63-RESP PCR NOT DETECTED; CORONAVIRUS OC43-RESP PCR NOT DETECTED; HUMAN METAPNEUMOVIRUS NOT DETECTED; INFLUENZA A- RESP PCR PANEL NOT DETECTED; INFLUENZA B - RESP PCR PANEL NOT DETECTED; M. PNEUMONIAE- RESP PCR PANEL NOT DETECTED; PARAINFLUENZA VIRUS 1 NOT DETECTED; PARAINFLUENZA VIRUS 2 NOT DETECTED; PARAINFLUENZA VIRUS 3 NOT DETECTED; PARAINFLUENZA VIRUS 4 NOT DETECTED; RHINOVIRUS/ENTEROVIRUS NOT DETECTED; RSV- RESP PCR PANEL NOT DETECTED; SARS-CoV-2 -RESP PCR PANEL NOT DETECTED
[2022-09-08] MEDS ORDERED: DEXAMETHASONE 10 MG/ML VIAL IM STA (12:22)
[2022-09-08] MEDS ORDERED: AMOXICILLIN 250 MG CAPSULE PO STA (12:26)
[2022-09-08] MEDS ORDERED: KETOROLAC 60 MG/2 ML VIAL IM STA (12:26)
--- NOTE | 2022-09-08 12:31 | ED Physician Documentation ---
PD HPI HEENT - Stated complaint Stated Complaint: SORE THROAT - Chief complaint Chief Complaint: Heent - History obtained from History obtained from: Patient - Additional information Additional information: The patient comes to the emergency department chief complaint of sore throat, cough, rhinorrhea, and feeling generally unwell for the last 2 to 3 days. She states her children have had a viral upper respiratory illness, but they have had a much milder case than her. The patient states her throat hurts so bad that it kept her up last night and she is not really been able to drink very much water. She denies any fevers or chills. She has also had some redness, discomfort, and drainage from her left eye. She is otherwise fairly healthy. 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 Medications Home Medications: Ambulatory Orders Medication Instructions Recorded Confirmed Amoxicillin 500 mg PO TID #21 cap 09/08/22 Gentamicin 0.3% Ophth Drops 1 drops OPTH BID #5 ml 09/08/22 [Garamycin] HYDROcodone/ACET 7.5/325 SERAFIN 10 ml PO Q6HR PRN #100 ml 09/08/22 [Lortab 7.5/325 Serafin] predniSONE [Deltasone] 60 mg PO DAILY 5 Days #15 tablet 09/08/22 - Allergies Allergies/Adverse Reactions: Allergies Allergy/AdvReac Type Severity Reaction Status Date / Time No Known Drug Allergies Allergy Verified 08/05/21 16:40 - Social History Does the pt smoke?: No Smoking Status: Never smoker Does the pt drink ETOH?: No Does the pt have substance abuse?: No - Immunizations Immunizations are current?: Yes PD ED PE NORMAL - Vitals Vital signs reviewed: Yes - General General: Alert and oriented X 3, No acute distress, Well developed/nourished - HEENT HEENT: Atraumatic, PERRL, EOMI (Left eye injected, with mild mucus drainage.), Moist mucous membranes, Other (Beefy red, symmetrical, 3+ tonsils with extensive white patches. No vesicles or ulcerations. No other oral lesions.) - Neck Neck: Supple, no meningeal sign, No adenopathy - Cardiac Cardiac: RRR, No murmur, Strong equal pulses - Respiratory Respiratory: No respiratory distress, Clear bilaterally - Derm Derm: Normal color, Warm and dry, No rash - Extremities Extremities: No deformity - Neuro Neuro: Alert and oriented X 3 - Psych Psych: Normal mood, Normal affect Results - Vitals Vitals: Vital Signs - 24 hr 09/08/22 08:50 Temperature 36.9 C Heart Rate 77 Respiratory 20 Rate Blood Pressure 132/82 H O2 Saturation 98 Oxygen O2 Source Room air - Labs Labs: Laboratory Tests 09/08/22 09/08/22 09/08/22 08:58 10:05 10:30 Nasal Adenovirus (PCR) NOT DETECTED Nasal B. parapertussis DNA (PCR) NOT DETECTED Nasal Coronavir 229E PCR NOT DETECTED Nasal Coronavir HKU1 PCR NOT DETECTED Nasal Coronavir NL63 PCR NOT DETECTED Nasal Coronavir OC43 PCR NOT DETECTED Nasal Enterovir/Rhinovir PCR NOT DETECTED Nasal Influenza B PCR NOT DETECTED Nasal Influenza A PCR NOT DETECTED Nasal Parainfluen 1 PCR NOT DETECTED Nasal Parainfluen 2 PCR NOT DETECTED Nasal Parainfluen 3 PCR NOT DETECTED Nasal Parainfluen 4 PCR NOT DETECTED Nasal RSV (PCR) NOT DETECTED Nasal B.pertussis DNA PCR NOT DETECTED Nasal C.pneumoniae (PCR) NOT DETECTED Patric Human Metapneumo PCR NOT DETECTED Nasal M.pneumoniae (PCR) NOT DETECTED Nasal SARS-CoV-2 (PCR) NOT DETECTED Infectious Mcdonough Assay NEGATIVE Group A Strep Rapid Negative PD Medical Decision Making - ED course Complexity details: reviewed results, re-evaluated patient, considered differential, d/w patient ED course: The patient was worked up with testing for strep, mono, and respiratory PCR panel, all of which were negative. The patient had a significant exudative pharyngitis, and I felt she should be treated with antibiotics for tonsillitis. She was started on amoxicillin. I have discussed with her that we will get a throat culture back tomorrow which will likely be positive for one of the other strep subgroups. The patient drove herself here, so was treated symptomatically in the ED with Toradol, Decadron, and a dose of amoxicillin. We have discussed the usual indications for return. Departure - Departure Disposition: 01 Home, Self Care Clinical Impression: Tonsillitis, Exudative pharyngitis, Viral syndrome Conjunctivitis Qualifiers: Conjunctivitis type: acute Acute conjunctivitis type: unspecified Laterality: left Qualified Code(s): H10.32 - Unspecified acute conjunctivitis, left eye Condition: Stable Instructions: ED Conjunctivitis Nonspecific, ED Strep Pharyngitis Poss, ED Vi ral Syndrome Prescriptions: HYDROcodone/ACET 7.5/325 SERAFIN [Lortab 7.5/325 Serafin] 10 ml PO Q6HR PRN #100 ml PRN Reason: Pain 5-7 Amoxicillin 500 mg PO TID #21 cap predniSONE [Deltasone] 60 mg PO DAILY 5 Days #15 tablet Gentamicin 0.3% Ophth Drops [Garamycin] 1 drops OPTH BID #5 ml Comments: All of your testing is negative, including for strep, mono, and a viral panel. However, as we have discussed, the rapid strep test does not test for other strep subgroups, and your throat exam is very convincing for a bacterial infection. As such, you have been started on antibiotics. A throat culture will be done overnight and will be able to see if there is another kind of strep growing in your throat. Most likely, you do also have the viral illness that your children have had, as well. You appear to have pinkeye on the left, And we will treat you for this also. The prescriptions for your antibiotics, eyedrops, and pain medications been electronically transmitted to the [facility] pharmacy in [place]. It would likely be at least a couple of days before you are beginning to feel somewhat better, and it may take a week before your symptoms are completely gone. Once your throat is feeling better, please be very aggressive about drinking clear liquids, especially water, as hydration will help with everything. Please follow-up with your primary care physician as needed.
[2022-09-08 12:44] VITALS: BP 150/110
== END 2022-09-08 12:43 | disposition home or self-care (01) ==
LOC: ED 08:26
DX: J02.9 Acute pharyngitis, unspecified (principal); H10.32 Unspecified acute conjunctivitis, left eye; B34.9 Viral infection, unspecified; Z20.822 Contact with and (suspected) exposure to COVID-19
CPT/HCPCS: 36415; 86308; 87070; 87430; 87633; 96372; 99283; 99284; A9270

== ENCOUNTER 2022-10-31 07:51 | Outpatient (CLI) | payer MEDICAID ==
[2022-10-31 08:14] LABS: BASOPHILS # (AUTO) 0.1 10^3/uL (0.0-0.1); BASOPHILS % (AUTO) 0.9 %; EOSINOPHILS # (AUTO) 0.1 10^3/uL (0.0-0.7); EOSINOPHILS % (AUTO) 1.6 %; HGB - HEMOGLOBIN 14.3 g/dL (12.0-16.0); LYMPHOCYTES # (AUTO) 1.9 10^3/uL (1.5-3.5); MEAN CORPUSCULAR HEMOGLOBIN 27.7 pg (27.0-31.0); MEAN CORPUSCULAR HGB CONC 33.3 g/dL (32.0-36.0); MEAN CORPUSCULAR VOLUME 83.3 fL (81.0-99.0); MONOCYTES # (AUTO) 0.4 10^3/uL (0.0-1.0); MONOCYTES % (AUTO) 6.6 %; NEUTROPHILS % (AUTO) 61.7 %; PLT - PLATELET COUNT 245 10^3/uL (130-450); RED BLOOD COUNT 5.16 10^6/uL (4.20-5.40); RED CELL DISTRIBUTION WIDTH 13.2 % (12.0-15.0); WHITE BLOOD COUNT 6.4 x10^3/uL (4.8-10.8)
[2022-10-31 09:27] LABS: ALBUMIN 4.4 g/dL (3.2-5.5); ALBUMIN/GLOBULIN RATIO 1.5 (1.0-2.2); ALKALINE PHOSPHATASE 64 IU/L (42-121); ALT ALANINE AMINOTRANSFERASE 23 IU/L (10-60); AST ASPARTATE AMINOTRANSFERASE 22 IU/L (10-42); BILIRUBIN,TOTAL 0.7 mg/dL (0.2-1.0); BUN - BLOOD UREA NITROGEN 10 mg/dL (6-20); CALCIUM 8.6 mg/dL (8.5-10.3); CARBON DIOXIDE - CO2 22 mmol/L (21-32); CHLORIDE 108 mmol/L (101-111); CHOL/HDL RATIO 4.5 (<4.4); CHOLESTEROL 179 mg/dL; CREATININE 0.9 mg/dL (0.4-1.0); GFR - MDRD 74 (>89); GLUCOSE 93 mg/dL (70-100); HDL CHOLESTEROL 40 mg/dL; LDL CHOLESTEROL,CALCULATED 124 mg/dL; LDL/HDL RATIO 3.1 (<4.4); POTASSIUM 4.3 mmol/L (3.5-5.0); SODIUM 140 mmol/L (135-145); TOTAL PROTEIN 7.4 g/dL (6.7-8.2); TRIGLYCERIDES 75 mg/dL; VLDL CHOLESTEROL 15 mg/dL
[2022-10-31 10:31] LABS: ESTIMATED AVERAGE GLUCOSE 88 mg/dL (70-100); HEMOGLOBIN A1c% 4.7 % (4.27-6.07)
[2022-10-31 18:19] LABS: THYROID STIMULATING HORMONE 0.89 uIU/mL (0.34-5.60)
== END 2022-10-31 07:52 | disposition home or self-care (01) ==
LOC: LAB 07:51
PROVIDERS: ATTEND Nurse Practitioner
DX: R53.83 Other fatigue (principal); Z13.220 Encounter for screening for lipoid disorders; R20.2 Paresthesia of skin; E66.9 Obesity, unspecified; F32.2 Major depressive disorder, single episode, severe without psychotic features
CPT/HCPCS: 36415; 80050; 80061; 81001; 82607; 83036; 83721; 87086

== ENCOUNTER 2023-04-04 08:00 | Outpatient (CLI) | payer MEDICAID ==
[2023-04-04 21:21] LABS: CHLAMYDIA TRACHOMATIS DNA NEGATIVE (NEGATIVE); NEISSERIA GONORRHOEAE DNA NEGATIVE (NEGATIVE); TRICHOMONAS VAGINALIS DNA NEGATIVE (NEGATIVE)
== END 2023-04-04 23:59 | disposition home or self-care (01) ==
LOC: LAB.WC 08:00
PROVIDERS: ATTEND Obstetrics & Gynecology
DX: Z11.3 Encounter for screening for infections with a predominantly sexual mode of transmission (principal)
CPT/HCPCS: 87491; 87591; 87661